=== PATIENT | male | born 1950 | race African-American/Black ===

== ENCOUNTER 2025-06-23 16:55 | Emergency (ER) | payer MEDICARE, SELFPAY ==
--- OUTSIDE RECORDS SUMMARY | 2024-01-28 07:15 | XMS_ITS ---
Author Organization [facility] Address [address] [address] Care Team Providers Care Hat Liner Name Role Phone Drew Owensbbir Primary Care Provider [phone] Allergies No Known Allergies REASON FOR VISIT F/U DM Medications Medication SIG (Take, Route, Frequency, Duration) Notes Start Date End Date Status rOPINIRole HCl 0.25 MG 1 tablet Orally O nce a day at bed time; Duration: 90 days 09/23/2023 Active Losartan Potassium 100 MG TAKE 1 TABLET ONCE DAILY; Duration: 90 Active Ezetimibe-Simvastatin 10-20 MG TAKE 1 TABLET ONCE DAILY; Duration: 90 Active metFORMIN HCl 1000 MG TAKE 1 TABLET TWIC E DAILY WITH MEALS; Duration: 90 Active glipiZIDE 5 MG TAKE 2 TABLETS EVERY MORNING AND 1 TABLET EVERY EVENING DIRECTED; Duration: 90 Active Aspir-81 81 MG 1 tablet Orally Once a day Active Vitamin D3 3000 UNIT 1 capsule Orally On ce a day Active amLODIPine Besylate 5 MG TAKE 1 TABLET O NCE DAILY; Duration: 90 days Active traMADol HCl 50 MG 1 tablet as needed Orally Q 6 hours; Duration: 30 days 05/23/2020 Not-Taking Social History Tobacco Use: Social History Observation Description Date Details (start date - stop date) Never Smoker NA - NA Tobacco Use/Smoking Question Answer Notes Are you a nonsmoker Additional Findings: Tobacco Non-User Current no n-smoker Alcohol Screen (Audit-C) Question Answer Notes Did you have a drink contain ing alcohol in the past year? Yes How often did you have a dri nk containing alcohol in the past year? 4 or more times a week (4 points) How many drinks did you have on a typical day when you were drinking in the past year? 7 to 9 drinks (3 points) How often did you have 6 or more drinks on one occasion in the past year? Monthly (2 points) Points 9 Interpretation Positive Tobacco use other than smoking: Question Answer Notes Are you an other tobacco user? No Vital Signs Temperature 98.6 degrees Fahrenheit 01/28/20 24 Blood pressure systolic 136 mm Hg 01/28/20 24 Blood pressure diastolic 70 mm Hg 024 Heart Rate 97 /min 01/28/2024 Respiratory Rate 16 /min 01/28/2024 Height 70 in 01/28/2024 Weight 212 lbs 01/28/2024 BMI 30.42 kg/m2 01/28/2024 Oximetry 96 % 01/28/2024 ple Encounters Encounter Location Date Provider Diagnosis [place] [id number] [address] [address] 01/28/2024 Manohar Owens Right hip pain M25.5 51 ; Type 2 diabetes mellitus with hyperglycemia, without long-term current use of insulin E11.65 ; Type 2 diabetes mellitus with other specified complication E11.69 ; Mixed hyperlipidemia E78.2 ; Essential hypertension I10 ; Colon polyp K63.5 ; Primary osteoarthritis of right knee M17.11 and Peripheral vascular disease, unspecified I73.9 Assessments Encounter Date Diagnosis (ICD Code) Assessment Notes Treatment Notes Treatment Clinical Notes Section Notes 01/28/2024 Right hip pain (ICD-10 - M25.551) Hip Pain: Care Instructions material was printed 01/28/2024 Type 2 diabetes mellitus with hyperglycemia, without long-term current use of insulin (ICD-10 - E11.65) 01/28/2024 Type 2 diabetes mellitus with other specified complication (ICD-10 - E11.69) 01/28/2024 Mixed hyperlipidemia (ICD-10 - E78.2) 01/28/2024 Essential hypertension (ICD-10 - I10) 01/28/2024 Colon polyp (ICD-10 - K63.5) 01/28/2024 Primary osteoarthritis of right knee (ICD-10 - M17.11) 01/28/2024 Peripheral vascular disease, unspecified (ICD-10 - I73.9) Plan Of Treatment Treatment Notes Assessment Notes Right hip pain Hip Pain: Care Instr uctions material was printed Next Appt Details Provider Name:Manohar Greene georgiana, 09/06/2025 01:00:00 PM, [address] [facility] [address], [place], [address], Progress Notes * Hu CAT CDOB: 3 (74 yo M)Acc No.[id number]:01/28/2024 Progress Notes Patient: Hu VALENCIA Provider: Margret Owens M.D. :1950 A ge:73 Y S ex:Male Date:01/28/2024 Address: [address], [facility] Subjective: * Chief Complaints: * 1 . F/U DM. * ROS: C onstitutional: No C onstit. Complaints . D enies A ppetites change . D enies E xcessive sweating . D enies F atigue . D enies F ever. D enies N ight sweats . D enies W eight gain. D enies W eight loss. E yes: No E ye complaints . D enies B lurred vision. D enies C orrective lenses. D enies D iplopia. D enies E ye irritation . D enies E ye pain . D enies S pots in vision . D enies V ision loss. ? E ars, nose, mouth, throat: No E NT complaints . D enies E ar pain . D enies H earing loss . D enies T innitus. D enies V ertigo. D enies F acial pain . D enies N rickey discharge. D enies N rickey obstruction . D enies N osebleeds. D enies P ostnasal drainage . D enies B leeding gums. D enies D ental pain . D enies M outh Lesions . D enies H oarseness. D enies S ore throat .? C ardiovascular: No C ardiovas. Complaints. D enies C hest pain .?Denies D ecr. exercise tolerance . D enies E xertional dyspnea . D enies O rthropnea. D enies P alpitations. D enies S yncope. D enies C laudication . Denies L eg ulcers . D enies P eripheral edema. R espiratory: No R espiratory Complaints . D enies C ough . D enies S putum production . D enies H emoptysis . D enies S hortness of Breath .?Denies P leuritic pain . D enies W heezing . D enies S noring . D enies A pneas. G astrointestinal: No G I Complaints . D enies A bdominal pain . D enies B loating . D enies F ood intolerance . D enies N ausea. D enies V omiting . D enies D ysphagia . D enies R eflux/heartburn . D enies C hange in bowel habits . D enies C onstipation . D enies D iarrhea . D enies B lack stools . D enies B loody stools. G enitourinary: No G U Complaints . D enies C hange in urinary stream . D enies D ysuria . D enies H ematuria . D enies I ncontinence . D enies N octuria . D enies U rinary frequency . D enies U rinary urgency . D enies D ysmenorrhea. D enies D yspareunia. D enies S exual dysfunction . D enies V aginal discharge . M usculoskeletal: Denies M usculo. Complaints . D enies B ack pain .?Admits J oint pain , N geneva pain, Rt Shoulder pain.. A dmits J oint swelling ,?Scrotum Swelling . D enies L imited range of motion . D enies M uscle aches. D enies M uscle weakness . D enies S tiffness . N eurologic: No N eurologic Complaints . D enies A bnormal gait . D enies F ocal weakness . D enies H eadache . D enies I ncoordination .?Denies M qasim problems . D enies N umbness . D enies S eizures . D enies?Slurred Speech. P sychiatric: No P sychiatric Complaints . D enies A nxiety .?Denies D ecreased concentration . D enies I rritability . D enies P anic attacks . D enies S leep disturbance . D enies S adness/tearfulness. H ematologic/lymphatic: No H em/Lymph Complaints . D enies B ruising . D enies B leeding tendencies . D enies L ymphadenopathy . D enies R ecurrent infections . A llergic/immunologic: No A ll/Imm Complaints . D enies E czema. D enies S easonal allergies . D enies U rticaria . E ndocrine: No E ndocrine Complaints . D enies P olydipsia .?Denies P olyphagia . D enies P olyuria . * Medical History: H ypertension(benign), Diabetes mellitus, GERD(Gastroesophageal reflux disease), Hyperlipidemia, Osteoarthritis. * Surgical History: C olon Resection ; , Foot Surgery ; . * Family History: M igFamilyHx: Mother-Hypertensive disorder, systemic arterial. 8 brother(s) , 4 sister(s) . 2 daughter(s) . . * Social History: T obacco Use: T obacco Use/Smoking A re you a n peace, Arabella dditional Findings: Tobacco Non-User C urrent non-smoker. T obacco use other than smoking A re you an other tobacco user? N o. M igSocialHx: M igSocialHx: Alcohol Use (ANS-No) ;Drug Use (ANS-No) ;Lives In (ANS-Home) ;Smoking status (ANS-Never smoker) ;. D rugs/Alcohol: D rugs H ave you used drugs other than those for medical reasons in the past 12 months??No. A lcohol Screen (Audit-C) D id you have a drink containing alcohol in the past year? Y es, H ow often did you have a drink containing alcohol in the past year? 4 or more times a week (4 points), H ow many drinks did you have on a typical day when you were drinking in the past year? 7 to 9 drinks (3 points), H ow often did you have 6 or more drinks on one occasion in the past year? M onthly (2 points), P oints 9 , I nterpretation P ositive. C affeine I ntake: 1 -2 cups per day. D o you smoke marijuana?: Denies. Do you drink alcohol?: Yes, , Daily. * Medications: T aking Vitamin D3 3000 UNIT Tablet 1 capsule Orally Once a day , Taking Aspir-81 81 MG Tablet Delayed Release 1 tablet Orally Once a day , Taking amLODIPine Besylate 5 MG Tablet TAKE 1 TABLET ONCE DAILY , Taking rOPINIRole HCl 0.25 MG Tablet 1 tablet Orally Once a day at bed time , Taking Ezetimibe-Simvastatin 10-20 MG Tablet TAKE 1 TABLET ONCE DAILY , Taking Losartan Potassium 100 MG Tablet TAKE 1 TABLET ONCE DAILY , Taking glipiZIDE 5 MG Tablet TAKE 2 TABLETS EVERY MORNING AND 1 TABLET EVERY EVENING DIRECTED , Taking metFORMIN HCl 1000 MG Tablet TAKE 1 TABLET TWICE DAILY WITH MEALS , Not-Taking/PRN traMADol HCl 50 MG Tablet 1 tablet as needed Orally Q 6 hours , Medication List reviewed and reconciled with the patient * Allergies: N .K.D.A. Objective: * Vitals: T emp:98.6F, HR:97/min, BP:136/70mm Hg, Wt:212lbs, BMI:30.42Index, Ht: 70 in, RR:16/min, Oxygen sat %:96%, Peak Flow:RA, Ht-cm: 177.8 cm, Wt-k.16kg. ple. * Examination: G eneral Examination: FUNCTIONAL STATUS A mbulatory . COGNITIVE STATUS A lert and oriented. GENERAL APPEARANCE: i n no acute distress, well developed, well nourished. NUTRITIONAL STATUS N ormal . ASSISTED DEVICES N one. HEAD: n ormocephalic, atraumatic. EYES: p upils equal, reactive to light and accommodation.? EARS: n ormal. ORAL CAVITY: m ucosa moist. THROAT: c lear. NECK/THYROID: n geneva supple, full range of motion, no cervical lymphadenopathy. SKIN: w arm and dry. HEART: r egular rate and rhythm, S1, S2 normal. LUNGS: c lear to auscultation bilaterally. ABDOMEN: n ormal, bowel sounds present, soft, nontender, nondistended. EXTREMITIES: n o clubbing, cyanosis, or edema. NEUROLOGIC: n onfocal, cranial nerves 2-12 grossly intact, motor strength normal upper and lower extremities, sensory exam intact. PSYCH: a lert, oriented x 3. Assessment: * Assessment: 1. R ight hip pain - M25.551 (Primary) 2 . T ype 2 diabetes mellitus with hyperglycemia, without long-term current use of insulin - E11.65 3 . T ype 2 diabetes mellitus with other specified complication - E11.69 4 . M ixed hyperlipidemia - E78.2 5 . E ssential hypertension - I10 6 . C olon polyp - K63.5 7 . P rimary osteoarthritis of right knee - M17.11 8 .?Peripheral vascular disease, unspecified - I73.9 Plan: * Treatment: * Preventive Medicine: Counseling: Ezra Boyle Management: Margoth TAPIA RECOMMENDATION: H ypertension education. C are goal follow-up plan: B [place] management provided Y es, Arabella talley Normal BMI Follow-up G iving encouragement to exercise, Lifestyle education regarding diet. * * Electronic signature of Katya Owens MD on 06/23/2025 at 06:40 PM EST Sign off status: Pending * Provider: Margret Owens M.D. Date: 0 01/28/2024 Generated for Printi ng/Faxing/eTransmitting on: 08/23/2024 06:40 PM EST History and Physical Notes * Examination Category Sub-Category Detail Notes Category Not es General Examination GENERAL APPEARANCE: in no ac nigel distress, well developed, well nourished HEAD: normocephalic, atrau matic EYES: pupils equal, reacti ve to light and accommodation EARS: normal THROAT: clear NECK/THYROID: neck supple, full ra nge of motion, no cervical lymphadenopathy HEART: regular rate and rhy thm, S1, S2 normal LUNGS: clear to auscultatio n bilaterally ABDOMEN: normal, bowel sounds present, soft, nontender, nondistended NEUROLOGIC: nonfocal, cranial ne rves 2-12 grossly intact, motor strength normal upper and lower extremities, sensory exam intact SKIN: warm and dry EXTREMITIES: no clubbing, cyanosi s, or edema PSYCH: alert, oriented x 3 ORAL CAVITY: mucosa moist FUNCTIONAL STATUS Ambulatory COGNITIVE STATUS Alert and oriented NUTRITIONAL STATUS Normal ASSISTED DEVICES None
--- OUTSIDE RECORDS SUMMARY | 2024-05-04 07:30 | XMS_ITS ---
Author Organization [facility] Address [address] [facility] [address] [place] [address] Care Team Providers Care Licensed Insurance Sales Agent Name Role Phone Manohar Owens Primary Care Provider Encounters Encounter Location Date Provider Diagnosis [facility] [address] [facility] [address] [place] [address] 05/04/2024 Manohar Owens Plan Of Treatment Next Appt Details Provider Name:Manohar stoner, 09/06/2025 01:00:00 PM, [address] [facility], [place], [address], Progress Notes * EMORYHu CDOB: 3 (74 yo M)Acc No.[id number]:05/04/2024 Progress Notes Patient: Hu VALENCIA Nuno Provider: Margret Owens M.D. :1950 A ge:73 Y S ex:Male Date:05/04/2024 Address:[address] [id number] Subjective: * Chief Complaints: * * Medical History: Objective: * Vitals: Assessment: Plan: * Treatment: * Preventive Medicine: Your Preventative Wellness Plan: C olorectal Cancer Screening C olonoscopy is recommended once every 10 years for patients at low risk or 2 years if at high risk. STATUS: U p to date, L ast Colonoscopy Screening Date Repeat in 1 Year. * * Electronic signature of Katya Owens MD on 06/23/2025 at 06:40 PM EST Sign off status: Pending * Provider: Margret Owens M.D. Date: Generated for Jared agauyo/Earl/Radu on: 08/23/2024 06:40 PM EST
--- OUTSIDE RECORDS SUMMARY | 2024-05-10 07:30 | XMS_ITS ---
Author Organization [facility] Address [address] [address] Care Team Providers Care Setup Technician Name Role Phone Manohar Owens Primary Care Provider Allergies No Known Allergies REASON FOR VISIT F/U DM Medications Medication SIG (Take, Route, Frequency, Duration) Notes Start Date End Date Status traMADol HCl 50 MG 1 tablet as needed Orally Q 6 hours; Duration: 30 days 05/23/2020 Not-Taking metFORMIN HCl 1000 MG TAKE 1 TABLET TWIC E DAILY WITH MEALS; Duration: 90 Active amLODIPine Besylate 5 MG TAKE 1 TABLET O NCE DAILY; Duration: 90 days Active Ezetimibe-Simvastatin 10-20 MG TAKE 1 TABLET ONCE DAILY; Duration: 90 Active Losartan Potassium 100 MG TAKE 1 TABLET ONCE DAILY; Duration: 90 Active glipiZIDE 5 MG 2 tablets AM; 1 tabl et PM Orally; Duration: 90 days Active Aspir-81 81 MG 1 tablet Orally Once a day Active rOPINIRole HCl 0.25 MG 1 tablet Orally O nce a day at bed time; Duration: 90 days 09/23/2023 Active Vitamin D3 3000 UNIT 1 capsule Orally On ce a day Active Social History Tobacco Use: Social History Observation [...] other tobacco user? No Vital Signs Temperature 98.2 degrees Fahrenheit 05/10/20 24 Blood pressure systolic 126 mm Hg 05/10/20 24 Blood pressure diastolic 84 mm Hg 024 Heart Rate 96 /min 05/10/2024 Respiratory Rate 16 /min 05/10/2024 Height 70 in 05/10/2024 Weight 210 lbs 05/10/2024 BMI 30.13 kg/m2 05/10/2024 Oximetry 96 % 05/10/2024 ple Encounters Encounter Location Date Provider Diagnosis [facility] [address] [facility] [address] [place] [address] 05/10/2024 Manohar Owens Type 2 diabetes mellitus with hyperglycemia, without long-term current use of insulin E11.65 ; Mixed hyperlipidemia E78.2 ; Essential hypertension I10 ; Esophageal reflux K21.9 ; Colon polyp K63.5 ; Obesity E66.9 and Peripheral vascular disease, unspecified I73.9 Assessments Encounter Date Diagnosis (ICD Code) Assessment Notes Treatment Notes Treatment Clinical Notes Section Notes 05/10/2024 Type 2 diabetes mellitus with hyperglycemia, without long-term current use of insulin (ICD-10 - E11.65) 05/10/2024 Mixed hyperlipidemia (ICD-10 - E78.2) High Cholesterol: Care Instructions material was printed 05/10/2024 Essential hypertension (ICD-10 - I10) 05/10/2024 Esophageal reflux (ICD-10 - K21.9) 05/10/2024 Colon polyp (ICD-10 - K63.5) 05/10/2024 Obesity (ICD-10 - E66.9) 05/10/2024 Peripheral vascular disease, unspecified (ICD-10 - I73.9) Plan Of Treatment Treatment Notes Assessment Notes Mixed hyperlipidemia High Cholesterol: C are Instructions material was printed Next Appt Details Provider Name:Manohar stoner, 09/06/2025 01:00:00 PM, [address] [facility] [address], [place], [address], Progress Notes * Hu CAT CDOB: 3 (74 yo M)Acc No.[id number]:05/10/2024 Progress Notes Patient: Hu VALENCIA Provider: Margret Owens M.D. :1950 A ge:73 Y S ex:Male Date:05/10/2024 Address: [address], [facility] Subjective: * Chief Complaints: * 1 . [...] omiting . D enies D ysphagia . A dmits R eflux/heartburn . D enies C hange [...] pain , N geneva pain, Rt Shoulder pain. . D enies J oint swelling . D enies L imited range of [...] obacco Use/Smoking A re you a n onsmoker, A dditional Findings: Tobacco Non-User C urrent non-smoker. [...] alcohol?: Yes, , Daily. * Medications: T tawnyag Vitamin D3 3000 UNIT Tablet 1 capsule Orally Once a day , Taking Aspir-81 81 MG Tablet Delayed Release 1 tablet Orally Once a day , Taking rOPINIRole HCl 0.25 MG Tablet 1 tablet Orally Once a day at bed time , Taking glipiZIDE 5 MG Tablet 2 tablets AM; 1 tablet PM Orally , Taking metFORMIN HCl 1000 MG Tablet TAKE 1 TABLET TWICE DAILY WITH MEALS , Taking amLODIPine Besylate 5 MG Tablet TAKE 1 TABLET ONCE DAILY , Taking Ezetimibe-Simvastatin 10-20 MG Tablet TAKE 1 TABLET ONCE DAILY , Taking Losartan Potassium 100 MG Tablet TAKE 1 TABLET ONCE DAILY , Not- Taking/PRN traMADol HCl 50 MG Tablet 1 tablet as needed Orally Q 6 hours , Medication List reviewed and reconciled with the patient * Allergies: N .K.D.A. Objective: * Vitals: T emp:98.2F, HR:96/min, BP:126/84mm Hg, Wt:210lbs, BMI:30.13Index, Ht: 70 in, RR:16/min, Oxygen sat %:96%, Peak Flow: RA, Ht-cm: 177.8 cm, Wt-k.25 kg. ple. * Examination: G eneral Examination: FUNCTIONAL [...] oriented x 3. Assessment: * Assessment: 1. T ype 2 diabetes mellitus with hyperglycemia, without long-term current use of insulin - E11.65 (Primary) 2 . M ixed hyperlipidemia - E78.2 3 . E ssential hypertension - I10 4 . E sophageal reflux - K21.9 5 . C olon polyp - K63.5 6 . O besity - E66.9 7 . P eripheral vascular disease, unspecified - I73.9 Plan: * Treatment: * Preventive Medicine: Your Preventative Wellness Plan: C olorectal Cancer Screening C olonoscopy is recommended once every 10 years for patients at low risk or 2 years if at high risk. STATUS: U p to date, L ast Colonoscopy Screening Date 0 -2023 Repeat in 1 Year. D iabetic Eye Exam P atients 18-75 years with diabetes should have retinal or dilated eye exam performed by an salon professional. STATUS: U p to date, L ast Diabetic Eye Exam: 0 04/22/2024. * * Electronic signature of Katya Owens MD on 06/23/2025 at 06:40 PM EST Sign off status: Pending * Provider: Margret Owens M.D. Date: 1 Generated for Jared aguayo/Fasandeepg/eTransmitting on: 08/23/2024 06:40 PM EST History and [...]
--- OUTSIDE RECORDS SUMMARY | 2024-08-17 07:00 | XMS_ITS ---
Author Organization [facility] Address [address] [address] Care Team Providers Care Manufacturing Shift Supervisor Name Role Phone Manohar Owens Primary Care Provider Allergies No Known Allergies REASON FOR VISIT F/U DM, c/o Rt ear pain off and on x 3 weeks Medications Medication SIG (Take, Route, Frequency, Duration) Notes Start Date End Date Status metFORMIN HCl 1000 MG TAKE 1 TABLET TWIC E DAILY WITH MEALS; Duration: 90 Active Ezetimibe-Simvastatin 10-20 MG TAKE 1 TABLET ONCE DAILY; Duration: 90 Active Losartan Potassium 100 MG TAKE 1 TABLET ONCE DAILY; Duration: 90 Active traMADol HCl 50 MG 1 tablet as needed Orally Q 6 hours; Duration: 30 days 05/23/2020 Not-Taking Amoxicillin 500 MG 1 capsule Orally louisa ry 8 hrs; Duration: 7 days 08/17/2024 Active glipiZIDE 5 MG 2 tablets AM; 1 tabl et PM Orally; Duration: 90 days Active Vitamin D3 3000 UNIT 1 capsule Orally On ce a day Active Aspir-81 81 MG 1 tablet Orally Once a day Active rOPINIRole HCl 0.25 MG 1 tablet Orally O nce a day at bed time; Duration: 90 days 09/23/2023 Active amLODIPine Besylate 5 MG TAKE 1 TABLET O NCE DAILY; Duration: 90 days Active Social History Tobacco Use: Social History [...] No Vital Signs Temperature 98.2 degrees Fahrenheit 08/17/19 25 Blood pressure systolic 122 mm Hg 08/17/19 25 Blood pressure diastolic 84 mm Hg 025 Heart Rate 97 /min 08/17/2024 Respiratory Rate 16 /min 08/17/2024 Height 70 in 08/17/2024 Weight 212 lbs 08/17/2024 BMI 30.42 kg/m2 08/17/2024 Oximetry 97 % 08/17/2024 ple Encounters Encounter Location Date Provider Diagnosis [place] [id number] [address] 08/17/2024 Manohar Earache on right H92.01 ; Otitis media in diseases classified elsewhere, right ear H67.1 ; Type 2 diabetes mellitus with hyperglycemia, without long-term current use of insulin E11.65 ; Mixed hyperlipidemia E78.2 ; Essential hypertension I10 ; RLS (restless legs syndrome) G25.81 ; Peripheral vascular disease, unspecified I73.9 ; Type 2 diabetes mellitus with other specified complication E11.69 and Morbid obesity E66.01 Assessments Encounter Date Diagnosis (ICD Code) Assessment Notes Treatment Notes Treatment Clinical Notes Section Notes 08/17/2024 Earache on right (ICD-10 - H92.01) Earache: Care Instructions material was printed 08/17/2024 Otitis media in diseases classified elsewhere, right ear (ICD-10 - H67.1) 08/17/2024 Type 2 diabetes mellitus with hyperglycemia, without long-term current use of insulin (ICD-10 - E11.65) 08/17/2024 Mixed hyperlipidemia (ICD-10 - E78.2) 08/17/2024 Essential hypertension (ICD-10 - I10) 08/17/2024 RLS (restless legs syndrome) (ICD-10 - G25.81) 08/17/2024 Peripheral vascular disease, unspecified (ICD-10 - I73.9) 08/17/2024 Type 2 diabetes mellitus with other specified complication (ICD-10 - E11.69) 08/17/2024 Morbid obesity (ICD-10 - E66.01) Plan Of Treatment Medication Medication Name Sig Start Date Stop Date Notes Amoxicillin 500 MG 1 capsule Orally louisa ry 8 hrs; Duration: 7 days 08/17/2024 glipiZIDE 5 MG 2 tablets AM; 1 tabl et PM Orally; Duration: 90 days Treatment Notes Assessment Notes Earache on right Earache: Care Instru ctions material was printed Next Appt Details Provider Name:Manohar stoner, 09/06/2025 01:00:00 PM, [address] [facility], [facility], [place], [address], Progress Notes * EMORY Hu CDOB: 3 (74 yo M)Acc No.[id number]:08/17/2024 Progress Notes Patient: Hu VALENCIA C Provider: Margret Owens M.D. :1950 A ge:73 Y S ex:Male Date:08/17/2024 Address: [address], [facility] Subjective: * Chief Complaints: * 1 . F/U DM. 2. c/o Rt ear pain off and on x 3 weeks. * ROS: C onstitutional: No C onstit. [...] enies V aginal discharge . M usculoskeletal: Musculo. Complaints A dmits neck pain. A dmits J oint pain . D enies J oint swelling . D enies L imited range of motion . D enies?Muscle aches. D enies M uscle weakness . [...] a day at bed time , Taking amLODIPine Besylate 5 MG Tablet TAKE 1 TABLET ONCE DAILY , Taking glipiZIDE 5 MG Tablet 2 tablets AM; 1 tablet PM Orally , Taking metFORMIN HCl 1000 MG Tablet TAKE 1 TABLET TWICE DAILY WITH MEALS , Taking Ezetimibe-Simvastatin 10-20 MG Tablet TAKE 1 TABLET ONCE DAILY , Taking Losartan Potassium 100 MG Tablet TAKE 1 TABLET ONCE DAILY , Not-Taking/PRN traMADol HCl 50 MG Tablet 1 tablet as needed Orally Q 6 hours , Medication List reviewed and reconciled with the patient * Allergies: N .K.D.A. Objective: * Vitals: T emp:98.2F, HR:97/min, BP:122/84mm Hg, Wt:212lbs, BMI:30.42Index, Ht: 70 in, RR:16/min, Oxygen sat %:97%, Peak Flow: RA, Ht-cm: 177.8 cm, Wt-k.16 kg. ple. * Examination: G eneral Examination: [...] oriented x 3. Assessment: * Assessment: 1. O titis media in diseases classified elsewhere, right ear - H67.1 2 . E arache on right - H92.01 (Primary) 3 . T ype 2 diabetes mellitus with hyperglycemia, without long-term current use of insulin - E11.65 4 . M ixed hyperlipidemia - E78.2 5 . E ssential hypertension - I10 6 . R LS (restless legs syndrome) - G25.81 7 . P eripheral vascular disease, unspecified - I73.9? 8. T ype 2 diabetes mellitus with other specified complication - E11.69 & #160; 9 . M orbid obesity - E66.01 Plan: * Treatment: 2. T ype 2 diabetes mellitus with hyperglycemia, without long-term current use of insulin Refill glipiZIDE Tablet, 5 MG, 2 tablets AM; 1 tablet PM, Orally, 90 days, 270 Each, Refills 1.? * Preventive Medicine: Your Preventative Wellness Plan: [...] or dilated eye exam performed by an blind eyeletter. STATUS: U p to date, L ast Diabetic Eye Exam: 0 04/22/2024. * * Electronic signature of Katya Owens MD on 06/23/2025 at 06:40 PM EST Sign off status: Pending * Provider: Margret Owens M.D. Date: 0 08/17/2024 Generated for Jdi ng/Faxing/eTransmitting on: 08/23/2024 06:40 PM EST History [...]
--- OUTSIDE RECORDS SUMMARY | 2024-08-29 08:30 | XMS_ITS ---
Author Organization [facility] Address [address] [address] Care Team Providers Care Customer Energy Specialist Name Role Phone Drew Owensbbir Primary Care Provider [phone] Allergies No Known Allergies REASON FOR VISIT F/U DM Medications Medication SIG (Take, Route, Frequency, Duration) Notes Start Date End Date Status glipiZIDE 5 MG 2 tablets AM; 1 tabl et PM Orally; Duration: 90 days Active traMADol HCl 50 MG 1 tablet as needed Orally Q 6 hours; Duration: 30 days 05/23/2020 Not-Taking Losartan Potassium 100 MG TAKE 1 TABLET ONCE DAILY; Duration: 90 Active Ezetimibe-Simvastatin 10-20 MG TAKE 1 TABLET ONCE DAILY; Duration: 90 Active Vitamin D3 3000 UNIT 1 capsule Orally On ce a day Active Aspir-81 81 MG 1 tablet Orally Once a day Active rOPINIRole HCl 0.25 MG 1 tablet Orally O nce a day at bed time; Duration: 90 days 09/23/2023 Active amLODIPine Besylate 5 MG TAKE 1 TABLET O NCE DAILY; Duration: 90 days Active metFORMIN HCl 1000 MG TAKE 1 TABLET TWIC E DAILY WITH MEALS; Duration: 90 Active Social History Tobacco Use: Social History [...] No Vital Signs Temperature 98.6 degrees Fahrenheit 08/29/19 25 Blood pressure systolic 124 mm Hg 08/29/19 25 Blood pressure diastolic 72 mm Hg 025 Heart Rate 96 /min 08/29/2024 Respiratory Rate 16 /min 08/29/2024 Height 70 in 08/29/2024 Weight 211 lbs 08/29/2024 BMI 30.27 kg/m2 08/29/2024 Oximetry 95 % 08/29/2024 ple Encounters Encounter Location Date Provider Diagnosis [facility] [address] [facility] [address] [place] [address] 08/29/2024 Manohar Owens Otitis media in diseases classified elsewhere, right ear H67.1 ; Impacted cerumen of right ear H61.21 ; Essential hypertension I10 ; Mixed hyperlipidemia E78.2 and RLS (restless legs syndrome) G25.81 Assessments Encounter Date Diagnosis (ICD Code) Assessment Notes Treatment Notes Treatment Clinical Notes Section Notes 08/29/2024 Otitis media in diseases classified elsewhere, right ear (ICD-10 - H67.1) Ear Infection (Otitis Media): Care Instructions material was printed 08/29/2024 Impacted cerumen of right ear (ICD-10 - H61.21) 08/29/2024 Essential hypertension (ICD-10 - I10) 08/29/2024 Mixed hyperlipidemia (ICD-10 - E78.2) 08/29/2024 RLS (restless legs syndrome) (ICD-10 - G25.81) Plan Of Treatment Treatment Notes Assessment Notes Otitis media in diseases cla ssified elsewhere, right ear Ear Infection (Otitis Media): Care Instructions material was printed Next Appt Details Provider Name:Manohar stoner, 09/06/2025 01:00:00 PM, [address] [facility], [address], [place], [address], Progress Notes * Hu CAT CDOB: 3 (74 yo M)Acc No.[id number]:08/29/2024 Progress Notes Patient: Hu VALENCIA Provider: Margret Owens M.D. :1950 A ge:73 Y S ex:Male Date:08/29/2024 Address:[address] [place], [place] [address] , [facility] Subjective: * Chief Complaints: * 1 . [...] usculoskeletal: Musculo. Complaints A dmits neck pain. D enies B ack pain . A dmits J oint pain . D [...] TAKE 1 TABLET ONCE DAILY , Taking metFORMIN HCl 1000 MG Tablet TAKE 1 TABLET TWICE DAILY WITH MEALS , Taking Ezetimibe-Simvastatin 10-20 MG Tablet TAKE 1 TABLET ONCE DAILY , Taking Losartan Potassium 100 MG Tablet TAKE 1 TABLET ONCE DAILY , Taking glipiZIDE 5 MG Tablet 2 tablets AM; 1 tablet PM Orally , Not-Taking/PRN traMADol HCl 50 MG Tablet 1 tablet as needed Orally Q 6 hours , Discontinued Amoxicillin 500 MG Capsule 1 capsule Orally every 8 hrs , Medication List reviewed and reconciled with the patient * Allergies: N .K.D.A. Objective: * Vitals: T emp:98.6F, HR:96/min, BP:124/72mm Hg, Wt:211lbs, BMI:30.27Index, Ht: 70 in, RR:16/min, Oxygen sat %:95%, Peak Flow: RA, Ht-cm: 177.8 cm, Wt-k.71 kg. ple. * Examination: G eneral Examination: [...] diseases classified elsewhere, right ear - H67.1 (Primary) 2 . I mpacted cerumen of right ear - H61.21 3 . E ssential hypertension - I10 4 . M ixed hyperlipidemia - E78.2 5 . R LS (restless legs syndrome) - G25.81 Plan: * Treatment: * Preventive Medicine: Your [...] or dilated eye exam performed by an accounts payable professional. STATUS: U p to date, L ast Diabetic Eye Exam: 0 04/22/2024. * * Electronic signature of Katya Owens MD on 06/23/2025 at 06:40 PM EST Sign off status: Pending * Provider: Margret Owens M.D. Date: 0 08/29/2024 Generated for Printi ng/Faxing/eTransmitting on: 1 08/23/2024 06:40 PM EST History and Physical [...]
--- OUTSIDE RECORDS SUMMARY | 2025-02-22 07:00 | XMS_ITS ---
Author Organization [facility] Address [address] [address] Care Team Providers Care Public Relations Supervisor Name Role Phone Manohar Owens Primary Care Provider [phone] Allergies No Known Allergies REASON FOR VISIT F/U DM Medications Medication SIG (Take, Route, Frequency, Duration) Notes Start Date End Date Status glipiZIDE 5 MG TAKE 2 TABLETS EVERY MORNING AND 1 TABLET EVERY EVENING; Duration: 90 Active metFORMIN HCl 1000 MG TAKE 1 TABLET TWIC E DAILY WITH MEALS; Duration: 90 Active Losartan Potassium 100 MG TAKE 1 TABLET ONCE DAILY; Duration: 90 Active Ezetimibe-Simvastatin 10-20 MG TAKE 1 TABLET ONCE DAILY; Duration: 90 Active amLODIPine Besylate 5 MG TAKE 1 TABLET D AILY; Duration: 90 days Active traMADol HCl 50 MG 1 tablet as needed Orally Q 6 hours; Duration: 30 days 05/23/2020 Not-Taking Aspir-81 81 MG 1 tablet Orally Once a day Active Vitamin D3 3000 UNIT 1 capsule Orally On a day Active Social History Tobacco Use: [...] other tobacco user? No Vital Signs Temperature 98.1 degrees Fahrenheit 02/23/20 25 Blood pressure systolic 138 mm Hg 02/23/20 25 Blood pressure diastolic 74 mm Hg 025 Heart Rate 95 /min 02/22/2025 Respiratory Rate 16 /min 02/22/2025 Height 70 in 02/22/2025 Weight 209 lbs 02/22/2025 BMI 29.99 kg/m2 02/22/2025 Oximetry 96 % 02/22/2025 ple Encounters Encounter Location Date Provider Diagnosis [facility] [address] [facility] [address] [place] [address] 02/22/2025 Manohar Owens Type 2 diabetes mellitus with hyperglycemia, without long-term current use of insulin E11.65 ; Type 2 diabetes mellitus with other specified complication E11.69 ; Mixed hyperlipidemia E78.2 ; Essential hypertension I10 ; Obesity E66.9 and Vitamin D deficiency E55.9 Assessments Encounter Date Diagnosis (ICD Code) Assessment Notes Treatment Notes Treatment Clinical Notes Section Notes 02/22/2025 Type 2 diabetes mellitus with hyperglycemia, without long-term current use of insulin (ICD-10 - E11.65) Type 2 Diabetes: Care Instructions material was printed 02/22/2025 Type 2 diabetes mellitus with other specified complication (ICD-10 - E11.69) 02/22/2025 Mixed hyperlipidemia (ICD-10 - E78.2) 02/22/2025 Essential hypertension (ICD-10 - I10) 02/22/2025 Obesity (ICD-10 - E66.9) 02/22/2025 Vitamin D deficiency (ICD-10 - E55.9) Plan Of Treatment Treatment Notes Assessment Notes Type 2 diabetes mellitus wit h hyperglycemia, without long-term current use of insulin Type 2 Diabetes: Care Instructions mater ial was printed Next Appt Details Provider Name:Manohar stoner, 09/06/2025 01:00:00 PM, [address] [facility], [address], [place], [address], Progress Notes * Hu CAT CDOB: 3 (74 yo M)Acc No.[id number]:02/22/2025 Progress Notes Patient: Hu VALENCIA Provider: Margret Owens M.D. :1950 A ge:74 Y S ex:Male Date:02/22/2025 Address:[address] [place] [address] , [facility], [id number] Subjective: * Chief Complaints: * 1 . F/U DM. * Medical History: H ypertension(benign), Diabetes mellitus, GERD(Gastroesophageal reflux disease), Hyperlipidemia, Osteoarthritis. * Surgical History: C olon Resection ; , Foot Surgery ; . * Family History: M igFamilyHx: Mother-Hypertensive disorder, systemic arterial. 8 brother(s) , 4 sister(s) . 2 daughter(s) . . * Social History: T obacco Use: T obacco Use/Smoking A re you a n onsmoker, Arabella dditional Findings: Tobacco Non-User C urrent [...] Besylate 5 MG Tablet TAKE 1 TABLET DAILY , Taking Ezetimibe-Simvastatin 10-20 MG Tablet TAKE 1 TABLET ONCE DAILY , Taking Losartan Potassium 100 MG Tablet TAKE 1 TABLET ONCE DAILY , Taking metFORMIN HCl 1000 MG Tablet TAKE 1 TABLET TWICE DAILY WITH MEALS , Taking glipiZIDE 5 MG Tablet TAKE 2 TABLETS EVERY MORNING AND 1 TABLET EVERY EVENING , Not-Taking/PRN traMADol HCl 50 MG Tablet 1 tablet as needed Orally Q 6 hours , Medication List reviewed and reconciled with the patient * Allergies: N .K.D.A. Objective: * Vitals: T emp:98.1F, HR:95/min, BP:138/74mm Hg, Wt:209lbs, BMI:29.99Index, Ht: 70 in, RR:16/min, Oxygen sat %:96%, Peak Flow:RA, Ht-cm: 177.8 cm, Wt-k.8 kg. ple. Assessment: * Assessment: 1. T ype 2 diabetes mellitus with hyperglycemia, without long-term current use of insulin - E11.65 (Primary) 2 . T ype 2 diabetes mellitus with other specified complication - E11.69 3 . M ixed hyperlipidemia - E78.2 4 . E ssential hypertension - I10 5 . O besity - E66.9 6 . V itamin D deficiency - E55.9 Plan: * Treatment: * Preventive Medicine: Your [...] or dilated eye exam performed by an education paraprofessional. STATUS: U p to date, L ast Diabetic Eye Exam: 0 04/22/2024. * * Electronic signature of Katya Owens MD on 06/23/2025 at 06:41 PM EST Sign off status: Pending * Provider: Margret Owens M.D. Date: 0 02/22/2025 Generated for Jared aguayo/Earl/eTransmitting on: 08/23/2024 06:41 PM EST
--- OUTSIDE RECORDS SUMMARY | 2025-05-29 07:00 | XMS_ITS ---
Author Organization [facility] Address [address] [address] Care Team Providers Care Fundraising Manager Name Role Phone Manohar Owens Primary Care Provider [phone] Allergies No Known Allergies REASON FOR VISIT F/U DM Medications Medication SIG (Take, Route, Frequency, Duration) Notes Start Date End Date Status Vitamin D3 3000 UNIT 1 capsule Orally On ce a day Active Aspir-81 81 MG 1 tablet Orally Once a day Active traMADol HCl 50 MG 1 tablet as needed Orally Q 6 hours; Duration: 30 days 05/23/2020 Not-Taking amLODIPine Besylate 5 MG TAKE 1 TABLET D AILY; Duration: 90 days Active metFORMIN HCl 1000 MG TAKE 1 TABLET TWIC E DAILY WITH MEALS; Duration: 90 days Active Ezetimibe-Simvastatin 10-20 MG TAKE 1 TABLET ONCE DAILY; Duration: 90 Active Losartan Potassium 100 MG TAKE 1 TABLET ONCE DAILY; Duration: 90 Active glipiZIDE 5 MG TAKE 2 TABLETS EVERY MORNING AND 1 TABLET EVERY EVENING; Duration: 90 Active Vital Signs Temperature 98.1 degrees Fahrenheit 05/29/20 25 Blood pressure systolic 140 mm Hg 05/29/20 25 Blood pressure diastolic 72 mm Hg 025 Heart Rate 84 /min 05/29/2025 Respiratory Rate 16 /min 05/29/2025 Height 70 in 05/29/2025 Weight 210 lbs 05/29/2025 BMI 30.13 kg/m2 05/29/2025 Oximetry 97 % 05/29/2025 TM Encounters Encounter Location Date Provider Diagnosis [facility] [address] [place], [place] [address] [address] 05/29/2025 Manohar Owens Type 2 diabetes mellitus with hyperglycemia, without long-term current use of insulin E11.65 ; Diabetes mellitus with peripheral vascular disease E11.51 ; Essential hypertension I10 ; Mixed hyperlipidemia E78.2 ; Colon polyp K63.5 ; Esophageal reflux K21.9 ; Obesity E66.9 and Cervical spondylosis M47.812 Assessments Encounter Date Diagnosis (ICD Code) Assessment Notes Treatment Notes Treatment Clinical Notes Section Notes 05/29/2025 Type 2 diabetes mellitus with hyperglycemia, without long-term current use of insulin (ICD-10 - E11.65) Type 2 Diabetes: Care Instructions material was printed 05/29/2025 Diabetes mellitus with peripheral vascular disease (ICD-10 - E11.51) 05/29/2025 Essential hypertension (ICD-10 - I10) 05/29/2025 Mixed hyperlipidemia (ICD-10 - E78.2) 05/29/2025 Colon polyp (ICD-10 - K63.5) 05/29/2025 Esophageal reflux (ICD-10 - K21.9) 05/29/2025 Obesity (ICD-10 - E66.9) 05/29/2025 Cervical spondylosis (ICD-10 - M47.812) Plan Of Treatment Medication Medication Name Sig Start Date Stop Date Notes amLODIPine Besylate 5 MG TAKE 1 TABLET D AILY; Duration: 90 days Treatment Notes Assessment Notes Type 2 diabetes mellitus wit h hyperglycemia, without long-term current use of insulin Type 2 Diabetes: Care Instructions mater ial was printed Next Appt Details Provider Name:Manohar stoner, 09/06/2025 01:00:00 PM, [address] [facility], [address], [place], [address], Progress Notes * Hu CAT CDOB: 3 (74 yo M)Acc No.[id number]:05/29/2025 Progress Notes Patient: Hu VALENCIA Provider: Margret Owens M.D. :1950 A ge:74 Y S ex:Male Date:05/29/2025 Address: [address], [id number] Subjective: * Chief Complaints: * 1 . F/U DM. * Medical History: H ypertension(benign), Diabetes mellitus, GERD(Gastroesophageal reflux disease), Hyperlipidemia, Osteoarthritis. * Surgical History: C olon Resection ; , Foot Surgery ; . * Hospitalization/Major Diagno stic Procedure: D enies Past Hospitalization. * Family History: M igFamilyHx: Mother-Hypertensive disorder, systemic arterial. 8 brother(s) , 4 sister(s) . 2 daughter(s) . . * Social History: M igSocialHx: M igSocialHx: Alcohol Use (ANS-No) ;Drug Use (ANS-No) ;Lives In (ANS-Home) ;Smoking status (ANS-Never smoker) ;. * Medications: T aking Vitamin D3 3000 [...] MORNING AND 1 TABLET EVERY EVENING , Taking metFORMIN HCl 1000 MG Tablet TAKE 1 TABLET TWICE DAILY WITH MEALS , Not-Taking/PRN traMADol HCl 50 MG Tablet 1 tablet as needed Orally Q 6 hours , Medication List reviewed and reconciled with the patient * Allergies: N .K.D.A. Objective: * Vitals: T emp:98.1F, HR:84/min, BP:140/72mm Hg, Wt:210lbs, BMI:30.13Index, Ht: 70 in, RR:16/min, Oxygen sat %:97%, Peak Flow: RA, Ht-cm: 177.8 cm, Wt-k.26 kg. TM. Assessment: * Assessment: 1. T ype 2 diabetes mellitus with hyperglycemia, without long-term current use of insulin - E11.65 (Primary) 2 . D iabetes mellitus with peripheral vascular disease - E11.51? 3. E ssential hypertension - I10 4 . M ixed hyperlipidemia - E78.2 5 . C olon polyp - K63.5 6 . E sophageal reflux - K21.9 7 . O besity - E66.9 8 . C ervical spondylosis - M47.812? Plan: * Treatment: 2. E ssential hypertension Refill amLODIPine Besylate Tablet, 5 MG, TAKE 1 TABLET DAILY, 90 days, 90 Tablet, Refills 1. ? * Preventive Medicine: Your Preventative Wellness Plan: [...] or dilated eye exam performed by an risk professional. STATUS: U p to date, L ast Diabetic Eye Exam: 0 04/22/2024. * * Electronic signature of Katya Owens MD on 06/23/2025 at 06:40 PM EST Sign off status: Pending * Provider: Margret Owens M.D. Date: Generated for Jared aguayo/Earl/Radu on: 08/23/2024 06:40 PM EST
--- NOTE | ~2025-06-23 | CT_ITS ---
EXAMINATION: CT brain wo con DATE: 06/23/2025 18:14 INDICATION: Dizziness. TECHNIQUE: Computed tomography (CT) of the head was performed without intravenous contrast. The mA was adjusted according to patient size. Iterative reconstruction technique was employed. The dose-length product was 605.33 mGy-cm. COMPARISON: None FINDINGS: No acute bleed. No ventriculomegaly or midline shift. Chronic small vessel ischemic change of periventricular white matter. No midline shift. Sinuses and mastoids are free of acute processes. IMPRESSION: 1. No acute findings in the limited noncontrast study. Reviewed, dictated and finalized at location T. NCIAL COMPLIANCE OFFICER
[2025-06-23 16:52] VITALS: BP 161/99; PULSE 106; RESP 19; TEMP 37.1; O2SAT 95
--- OUTSIDE RECORDS SUMMARY | 2025-06-23 17:40 | XMS_ITS | Patient Health Record ---
Author Organization [facility] Address [address] [address] Care Team Providers Care Chain Testing Machine Operator Name Role Phone Drew Owensbbir Primary Care Provider [phone] Allergies No Known Allergies Reason For Referral No Information Medications Medication SIG (Take, Route, Frequency, Duration) Notes Start Date End Date Status Vitamin D3 3000 UNIT 1 capsule Orally On a day Active Aspir-81 81 MG 1 tablet Orally Once a day Active traMADol HCl 50 MG 1 tablet as needed Orally Q 6 hours; Duration: 30 days 05/23/2020 Not-Taking amLODIPine Besylate 5 MG TAKE 1 TABLET D AILY; Duration: 90 days Active Ezetimibe-Simvastatin 10-20 MG TAKE 1 TABLET ONCE DAILY; Duration: 90 Active Losartan Potassium 100 MG TAKE 1 TABLET ONCE DAILY; Duration: 90 Active glipiZIDE 5 MG TAKE 2 TABLETS EVERY MORNING AND 1 TABLET EVERY EVENING; Duration: 90 Active metFORMIN HCl 1000 MG TAKE 1 TABLET TWIC E DAILY WITH MEALS; Duration: 90 days Active Social History Tobacco [...] Are you an other tobacco user? No Problems Problem Type SNOMED Code ICD Code Onset Dates Problem Status W/U Status Risk Notes Problem Type 2 diabetes mellitus with other specified complication (E11.69) Active confirmed Problem Mixed hyperlipidemia (470580267) Mixed hyperlipidemia (E78.2) Active confirmed Problem Peripheral vascular disease (453194317) Peripheral vascular disease, unspecified (I73.9) Active confirmed Problem Restless legs (89162163) RLS (restless legs syndrome) (G25.81) Active confirmed Problem Essential hypertension (49000237) Essential hypertension (I10) Active confirmed Problem Vitamin D deficiency (89168891) Vitamin D deficiency (E55.9) Active confirmed Problem Occlusion and stenosis of multiple and bilateral cerebral arteries (621889939) Bilateral carotid artery stenosis (I65.23) Active confirmed Problem Polyp colon (45112490) Colon polyp (K63.5) Active confirmed Problem Shoulder joint pain (753451056) Acute pain of right shoulder (M25.511) Active confirmed Problem Generalized osteoarthritis (938825600) Generalized osteoarthritis (M15.9) Active confirmed Problem Esophageal reflux (438877059) Esophageal reflux (K21.9) Active confirmed Problem Neck pain (21902440) Neck pain (M54.2) Active confirmed Problem Obesity (525622675) Obesity (E66.9) Active confirmed Problem Osteoarthritis of knee (183684970) Primary osteoarthritis of right knee (M17.11) Active confirmed Problem Cervical spondylosis (075529441) Cervical spondylosis (M47.812) Active confirmed Problem Type 2 diabetes mellitus well controlled (968378566) Diabetes mellitus type II, controlled (E11.9) Active confirmed Problem Localized, primary osteoarthritis of the shoulder region (349752249) Primary osteoarthritis of left shoulder (M19.012) Active confirmed Problem Type 2 diabetes mellitus with peripheral angiopathy (516885238) Diabetes mellitus with peripheral vascular disease (E11.51) Active confirmed Problem Hyperglycemia due to type 2 diabetes mellitus (329033603959001) Type 2 diabetes mellitus with hyperglycemia, without long-term current use of insulin (E11.65) Active confirmed Problem Swelling of scrotum (791389257) Swelling of scrotum (N50.89) Active confirmed Vital Signs Heart Rate 84 /min 05/29/2025 TM Temperature 98.1 degrees Fahrenheit 05/29/2025 TM Respiratory Rate 16 /min 05/29/2025 TM Blood pressure diastolic 72 mm Hg 05/29/2025 TM Oximetry 97 % 05/29/2025 TM Height 70 in 05/29/2025 TM Blood pressure systolic 140 mm Hg 05/29/2025 TM Weight 210 lbs 05/29/2025 TM BMI 30.13 kg/m2 05/29/2025 TM Encounters Encounter Location Date Provider Diagnosis [facility] [address] [address] 08/17/2024 Manohar Owens Earache on right H92 .01 ; Otitis media in diseases classified elsewhere, right ear H67.1 ; Type 2 diabetes mellitus with hyperglycemia, without long-term current use of insulin E11.65 ; Mixed hyperlipidemia E78.2 ; Essential hypertension I10 ; RLS (restless legs syndrome) G25.81 ; Peripheral vascular disease, unspecified I73.9 ; Type 2 diabetes mellitus with other specified complication E11.69 and Morbid obesity E66.01 [facility] [address] [address] 08/29/2024 Manohar Owens Otitis media in diseases classified elsewhere, right ear H67.1 ; Impacted cerumen of right ear H61.21 ; Essential hypertension I10 ; Mixed hyperlipidemia E78.2 and RLS (restless legs syndrome) G25.81 [facility] [address] [address] 11/23/2024 Manohar Owens Type 2 diabetes mellitus with hyperglycemia, without long-term current use of insulin E11.65 ; Diabetes mellitus with peripheral vascular disease E11.51 ; Generalized osteoarthritis M15.9 ; Bilateral carotid artery stenosis I65.23 ; Essential hypertension I10 and Mixed hyperlipidemia E78.2 [facility] [address] [address] 02/22/2025 Manohar Owens Type 2 diabetes mellitus with hyperglycemia, without long-term current use of insulin E11.65 ; Type 2 diabetes mellitus with other specified complication E11.69 ; Mixed hyperlipidemia E78.2 ; Essential hypertension I10 ; Obesity E66.9 and Vitamin D deficiency E55.9 [facility] [address] [address] 05/29/2025 Manohar Owens Type 2 diabetes mellitus with hyperglycemia, without long-term current use of insulin E11.65 ; Diabetes mellitus with peripheral vascular disease E11.51 ; Essential hypertension I10 ; Mixed hyperlipidemia E78.2 ; Colon polyp K63.5 ; Esophageal reflux K21.9 ; Obesity E66.9 and Cervical spondylosis M47.812 [facility] [address] [address] 11/14/2024 Manohar Owens [facility] [address] [address] [facility]14[facility] [address] [address] 09/14/2024 Manohar Owens [facility] [address] [address] 11/14/2024 Manohar Owens [facility] [address] [address] 05/09/2025 Manohar Owens Assessments Encounter Date Diagnosis (ICD Code) Assessment Notes Treatment Notes Treatment Clinical Notes Section Notes 02/22/2025 Type 2 diabetes mellitus with hyperglycemia, without long-term current use of insulin (ICD-10 - E11.65) Type 2 Diabetes: Care Instructions material was printed 11/23/2024 Type 2 diabetes mellitus with hyperglycemia, without long-term current use of insulin (ICD-10 - E11.65) Type 2 Diabetes: Care Instructions material was printed 08/29/2024 Otitis media in diseases classified elsewhere, right ear (ICD-10 - H67.1) Ear Infection (Otitis Media): Care Instructions material was printed 08/29/2024 Impacted cerumen of right ear (ICD-10 - H61.21) 05/29/2025 Type 2 diabetes mellitus with hyperglycemia, without long-term current use of insulin (ICD-10 - E11.65) Type 2 Diabetes: Care Instructions material was printed 08/17/2024 Otitis media in diseases classified elsewhere, right ear (ICD-10 - H67.1) 08/17/2024 Earache on right (ICD-10 - H92.01) Earache: Care Instructions material was printed 08/17/2024 Type 2 diabetes mellitus with hyperglycemia, without long-term current use of insulin (ICD-10 - E11.65) 05/29/2025 Diabetes mellitus with peripheral vascular disease (ICD-10 - E11.51) 08/29/2024 Essential hypertension (ICD-10 - I10) 11/23/2024 Diabetes mellitus with peripheral vascular disease (ICD-10 - E11.51) 02/22/2025 Type 2 diabetes mellitus with other specified complication (ICD-10 - E11.69) 02/22/2025 Mixed hyperlipidemia (ICD-10 - E78.2) 11/23/2024 Generalized osteoarthritis (ICD-10 - M15.9) 08/29/2024 Mixed hyperlipidemia (ICD-10 - E78.2) 05/29/2025 Essential hypertension (ICD-10 - I10) 08/17/2024 Mixed hyperlipidemia (ICD-10 - E78.2) 08/17/2024 Essential hypertension (ICD-10 - I10) 05/29/2025 Mixed hyperlipidemia (ICD-10 - E78.2) 08/29/2024 RLS (restless legs syndrome) (ICD-10 - G25.81) 11/23/2024 Bilateral carotid artery stenosis (ICD-10 - I65.23) 02/22/2025 Essential hypertension (ICD-10 - I10) 11/23/2024 Essential hypertension (ICD-10 - I10) 02/22/2025 Obesity (ICD-10 - E66.9) 05/29/2025 Colon polyp (ICD-10 - K63.5) 08/17/2024 RLS (restless legs syndrome) (ICD-10 - G25.81) 08/17/2024 Peripheral vascular disease, unspecified (ICD-10 - I73.9) 05/29/2025 Esophageal reflux (ICD-10 - K21.9) 11/23/2024 Mixed hyperlipidemia (ICD-10 - E78.2) 02/22/2025 Vitamin D deficiency (ICD-10 - E55.9) 05/29/2025 Obesity (ICD-10 - E66.9) 08/17/2024 Type 2 diabetes mellitus with other specified complication (ICD-10 - E11.69) 08/17/2024 Morbid obesity (ICD-10 - E66.01) 05/29/2025 Cervical spondylosis (ICD-10 - M47.812) Plan Of Treatment Next Appt Details Provider Name:Manohar stoner, 09/06/2025 01:00:00 PM, [address] [facility], [place], [address], Insurance Providers Payer Name Payer Address Payer Phone Subscriber Number Group Number Insured Name Patient Relationship to Insured Coverage Start Date Coverage End Date [employer] [address] [place], [place] [id number] Hu Ballard Self - patient is the insured 2 Medications Administered Medication Instructions Date of Administration Dosage Notes Depo Medro 40mg 12/23/2021 60 mg LEFT SHOU LDER INJECTION 60MG DEPOMEDRO Medical (General) History Medical History History ICD Code Hypertension(benign) Diabetes mellitus GERD(Gastroesophageal reflux disease) Hyperlipidemia Osteoarthritis Surgical History Surgery Date(Month/Year) Colon Resection ; Foot Surgery ; Hospitalization History Reason Date(Month/Year)
--- OUTSIDE RECORDS SUMMARY | 2025-06-23 17:40 | XMS_ITS | Clinical Summary ---
Author Organization [facility] Address [address] [place] [address] Care Team Providers Care Adjustment Clerk Name Role Phone Manohar Owens MD Unavailable [phone] Manohar Owens MD Primary Care Provider [phone] Allergies No known active allergies Medications glipiZIDE (GLUCOTROL) 10 MG tablet Take 1 tablet (10 mg total) by mouth every morning before breakfast. Active losartan (COZAAR) 100 MG tablet Take 1 tablet (100 mg total) by mouth daily. Active amLODIPine (NORVASC) 5 MG tablet Take 1 tablet (5 mg total) by mouth daily. Active ezetimibe (ZETIA) 10 MG tablet Take 1 tablet (10 mg total) by mouth daily. Active Multiple Vitamin (MULTIVITAMIN ADULT OR) Take 1 tablet by mouth daily. Active metFORMIN (GLUCOPHAGE) 500 MG tablet Take 1 tablet (500 mg total) by mouth 2 (two) times daily with meals. Active simvastatin (ZOCOR) 20 MG tablet Take 1 tablet (20 mg total) by mouth nightly at bedtime. Active aspirin 81 MG chewable tablet Chew 1 tablet (81 mg total) by mouth daily. Active traMADol (ULTRAM) 50 MG tabletIndicatio ns:Acute Pain < 7 Day Supply Take 1 tablet (50 mg total) by mouth every 6 (six) hours as needed for Pain. Indications: Acute Pain < 7 Day Supply 25 tablet 11/20/2022 Active Active Problems No known active problems Family History Medical History Relation Comments No Known Problems Father Diabetes Mother Relation Status Comments Father Mother Alive Social History Tobacco Use Types Packs/Day Years Used Date Smoking Tobacco: Never Smokeless Tobacco: Never Tobacco Cessation:Counseling Given: Not Answered Alcohol Use Standard Drinks/Week Comments Yes 0 (1 standard drink = 0.6 oz pur e alcohol) beer- about 7 drinks a day. Sex and Gender Information Value Date Recorded Sex Assigned at Not on file Legal Sex Male 2:08 PM CDT Gender Identity Not on file Sexual Orientation Not on file Last Filed Vital Signs Vital Sign Reading Time Taken Comments Blood Pressure 157/78 12/19/2022 9:00 PM CDT Pulse 116 12/19/2022 9:00 PM CDT Temperature 36.6 C (97.8 F) 12/19/2022 5:51 PM CDT Respiratory Rate 29 12/19/2022 9:00 PM CDT Oxygen Saturation 93% 12/19/2022 9:00 PM CDT Inhaled Oxygen Concentration - - Weight 97.5 kg (215 lb) 12/19/2022 5:51 PM CDT Height 177.8 cm (5' 10) 12/19/2022 5:51 PM CDT Body Mass Index 30.85 12/19/2022 5:51 PM CDT Plan of Treatment Health Maintenance Due Date Last Done Comments Colorectal Cancer Screening Colonoscopy (10 Years) 1952 Hepatitis C 1970 DTaP, Tdap and Td Vaccines ( 1 - Tdap) 1971 Pneumococcal Vaccine: 50+ Ye ars (1 of 1 - PCV) 2002 Zoster Vaccines (1 of 2) 2002 Annual Medicare Wellness Visit 2017 COVID-19 Vaccine ( - 2024-2 6 season) 2025 Influenza Adult (#1) 2025 RSV Immunization or 60+ Years (1 - 1-dose 75+ series) 2027 Hepatitis A Vaccines Aged Out No long er eligible based on patient's age to complete this topic Meningococcal B Vaccine Aged Out No l onger eligible based on patient's age to complete this topic Meningococcal Vaccine Aged Out No jason tati eligible based on patient's age to complete this topic RSV Immunizations Under 20 Months Aged Out No longer eligible based on patient's age to complete this topic Insurance [employer] Care Teams Adjustment Clerk Relationship Specialty Start Date End Date Manohar Owens MD [address] [place] [address] PCP - General INTERNAL MEDICINE 11/20/22 Manohar Owens MD [address] [place] [address] INTERNAL MEDICINE 11/04/22
--- OUTSIDE RECORDS SUMMARY | 2025-06-23 17:41 | XMS_ITS | Clinical Summary ---
Author Organization [facility] Address [address] [place] [address] Care Team Providers Care Philosophy Lecturer Name Role Phone Manohar Owens MD Primary Care Provider Encounters Date Type Department Care Team Description 05/22/2025 12:40 PM CDT Lab [facility] [address] [place] [address] from Last 3 Months Social History Tobacco Use Types Packs/Day Years Used Date Smoking Tobacco: Never Assessed Personal Safety Answer Date Recorded Getting School Help Needed Not on file 07/18 Sex and Gender Information Value Date Recorded Sex Assigned at Not on file Legal Sex 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 Gender Identity Not on file Sexual Orientation Not on file Plan of Treatment Health Maintenance Due Date Last Done Comments Colon Cancer Screening-Colonoscopy 1952 Depression Screening 1952 Fall Risk Assessment 1950 Hepatitis C Screening 1950 DTaP/Tdap/Td Vaccine (1 - Tdap) 1963 Hepatitis B Screening 1970 Pneumococcal vaccine 65+ (1 of 1 - PCV) 2002 Zoster Vaccine (1 of 2) 2002 Well Visit 65+ 2017 Influenza Vaccine (#1) 2025 Prostate Cancer Screening-PSA 05/03/2026, 01/22/2023, 09/10/2021, Additional history exists Abdominal Aortic Aneurysm (A AA) Screen Completed 12/19/2022 Procedures Procedure Name Priority Date/Time Associated Diagnosis Comments EGFR Routine 05/22/2025 12:51 PM CDT DIFFERENTIAL AUTO Routine 05/22/2025 12: 51 PM CDT CBC WITH AUTO DIFFERENTIAL Routine 05/22/2025 12:51 PM CDT HEMOGLOBIN A1C Routine 05/22/2025 12:51 PM CDT LIPID PANEL Routine 05/22/2025 12:51 PM CDT COMPREHENSIVE METABOLIC PANEL Routine 05/22/2025 12:51 PM CDT PSA SCREEN Routine 05/03/2024 1:49 PM CDT from Last 3 Months or Most Recently Relevant to Health Maintenance Results * eGFR (05/22/2025 12:51 PM CDT) eGFR 82 >=60 mL/min/1. 73 m2 Comment: Interpretive Data Reference Interval Normal >/= 90 mL/min/1.73m2 Mildly decreased* 60 - 89 mL/min/1.73m2 Mildly to moderately decreased 45 - 59 mL/min/1.73m2 Moderately to severely decreased 30 - 44 mL/min/1.73m2 Severely decreased 15 - 29 mL/min/1.73m2 Kidney Failure < 15 mL/min/1.73m2 *Relative to young adult level Estimated glomerular filtration rate is determined by the 2020 CKD-EPI equation recommended by the National Kidney Foundation (A Unifying Approach to GFR Estimation: Recommendations of the NKF-ASK Task Force on Reassessing the Inclusion of Race in Diagnosing Kidney Disease, JASN 2020). The CKD-EPI equation should not be used for patients with unstable renal function and has not been validated in children and those over 70. Current interpretive data was last reviewed 2021. Blood 05/22/2025 12:5 1 PM CDT 05/22/2025 1:04 PM CDT Manohar Owens MD LAB BLOOD ORDERABLES Final Result [facility] [address] [facility] [place] [address] * (ABNORMAL) Differential, auto (05/22/2025 12:51 PM CDT) Neutrophil abs 2.69 1.50 - 6.50 K/cumm Imm gran abs 0.01 0.00 - 0.10 K/cumm [facility] Lymphocyte abs 2.63 0.80 - 3.30 K/cumm [facility] Monocyte abs 0.83(H) 0.20 - 0.80 K/cumm [facility] Eosinophil abs 0.17 0.00 - 0.50 K/cumm [facility] Basophil abs 0.04 0.00 - 0.10 K/cumm [facility] Neutrophil pct 42.2 % [facility] Comment: Interpretive Data Percent cell count reference ranges are not reported, since discordance with absolute values may lead to misinterpretation of CBC data. Current Interpretive Data was last revised on 2017. Imm gran pct 0.2 % [facility] Comment: Interpretive Data Percent cell count reference ranges are not reported, since discordance with absolute values may lead to misinterpretation of CBC data. Current Interpretive Data was last revised on 2017. Lymphocyte pct 41.3 % [facility] Comment: Interpretive Data Percent cell count reference ranges are not reported, since discordance with absolute values may lead to misinterpretation of CBC data. Current Interpretive Data was last revised on 2017. Monocyte pct 13.0 % [facility] Comment: Interpretive Data Percent cell count reference ranges are not reported, since discordance with absolute values may lead to misinterpretation of CBC data. Current Interpretive Data was last revised on 2017. Eosinophil pct 2.7 % [facility] Comment: Interpretive Data Percent cell count reference ranges are not reported, since discordance with absolute values may lead to misinterpretation of CBC data. Current Interpretive Data was last revised on 2017. Basophil pct 0.6 % [facility] Comment: Interpretive Data Percent cell count reference ranges are not reported, since discordance with absolute values may lead to misinterpretation of CBC data. Current Interpretive Data was last revised on 2017. Blood 05/22/2025 12:5 1 PM CDT 05/22/2025 1:04 PM CDT Manohar Owens MD LAB BLOOD ORDERABLES Final Result Performing Organization Address [facility] Co de Phone Number NE[facility] [address] [place] [address] * (ABNORMAL) CBC with auto differential (05/22/2025 12:51 PM CDT) WBC 6.37 3.80 - 9.90 K/cumm Hgb 12.4(L) 13.0 - 17.5 g/dL [facility] Hct 37.6(L) 38.9 - 50.3 % [facility] Plt 295 150 - 400 K/cumm [facility] MPV 9.7 9.1 - 12.3 fL [facility] RBC 4.28(L) 4.30 - 5.80 M/cumm [facility] MCV 87.9 81.3 - 96.4 fL [facility] MCH 29.0 27.1 - 33.3 pg [facility] MCHC 33.0 32.3 - 35.7 g/dL [facility] RDW CV 13.2 11.1 - 14.9 % [facility] RDW SD 42.5 35.7 - 48.1 fL [facility] NRBC abs 0.00 0.00 - 0.01 K/cumm [facility] Blood 05/22/2025 12:5 1 PM CDT 05/22/2025 1:04 PM CDT Manohar Owens MD LAB BLOOD ORDERABLES Final Result Performing Organization Address City/[facility]/ZIP Co de Phone Number [facility] [address] [place], [place] [id number] * (ABNORMAL) Hemoglobin A1c (05/22/2025 12:51 PM CDT) Hgb A1C 7.5(H) 4.0 - 5.6 % Estimated Average Glucose 169 mg/dL [facility] Comment: The ADA recommends reporting an estimated Average Glucose (eAG) with all Hemoglobin A1c results using the equation derived from a study of 507 normal and diabetic adults. Minority populations were underrepresented and children were not included. (Diabetes Care 31:9584-3699, 2008). The eAG is not equivalent to a fasting glucose. Blood 05/22/2025 12:5 1 PM CDT 05/22/2025 1:04 PM CDT us Manohar Owens MD LAB BLOOD ORDERABLES Final Result [facility] [address] [facility] [place] [address] * Lipid panel (05/22/2025 12:51 PM CDT) Cholesterol 157 30 - 199 mg/dL Comment: Interpretive Data Ages < or = 19 years Acceptable: <170 mg/dL Borderline high: 170-199 mg/dL High: >or= 200 mg/dL Ages > or = 20 years Desirable: <200 mg/dL Borderline high: 200-239 mg/dL High: >or= 240 mg/dL Literature References: 1. Expert Panel on Integrated Guidelines for Cardiovascular Health and Risk Reduction in Children and Adolescents. Pediatrics 2011;128:S213 2. NCEP Expert Panel. Circulation 2004;110:227 Current Interpretive Data was last revised on 2018. Triglycerides 105 <=149 mg/dL [facility] Comment: Interpretive Data Ages < or = 9 years Acceptable: <75 mg/dL Borderline high: 75-99 mg/dL High: >or= 100 mg/dL Ages 10 to 20 years Acceptable: <90 mg/dL Borderline high: 90-129 mg/dL High: >or= 130 mg/dL Ages > or = 20 years Desirable: <150 mg/dL Borderline high: 150-199 mg/dL High: 200-499 mg/dL Very high: >or= 499 mg/dL Literature References: 1. Expert Panel on Integrated Guidelines for Cardiovascular Health and Risk Reduction in Children and Adolescents. Pediatrics 2011;128:S213 2. NCEP Expert Panel. Circulation 2004;110:227 Current Interpretive Data was last revised on 2018. HDL 51 >=40 mg/dL [facility] Comment: Interpretive Data Ages < or = 19 years Acceptable: >45 mg/dL Borderline low: 40-45 mg/dL Low: <40 mg/dL Ages > or = 20 years Desirable: >or= 60 mg/dL Low: <40 mg/dL Literature References: 1. Expert Panel on Integrated Guidelines for Cardiovascular Health and Risk Reduction in Children and Adolescents. Pediatrics 2011;128:S213 2. NCEP Expert Panel. Circulation 2004;110:227 Current Interpretive Data was last revised on 2018. LDL, calculated 87 <=129 mg/dL [facility] Comment: Interpretive Data Ages < or = 19 years Acceptable: <110 mg/dL Borderline high: 110-129 mg/dL High: >or= 130 mg/dL Ages > or = 20 years Optimal: <100 mg/dL Near optimal: 100-129 mg/dL Borderline high: 130-159 mg/dL High: >160 mg/dL Calculated using the Sancho LDL-C estimating equation. This equation was implemented on 2024. Prior to this date LDL-C was estimated using the Friedewald equation. Literature References: 1. Expert Panel on Integrated Guidelines for Cardiovascular Health and Risk Reduction in Children and Adolescents. Pediatrics 2011;128:S213 2. NCEP Expert Panel. Circulation 2004;110:227 3. Sancho Rosen et al. TITA Cardiol. 2019December 01;5(5):540-548. doi: 10.1001/jamacardio.2020.0013 Current Interpretive Data was last revised on 2024. Non-HDL Cholesterol 106 mg/dL [facility] Comment: Interpretive Data Ages < or = 19 years Acceptable: <120 mg/dL Borderline high: 120-144 mg/dL High: >145 mg/dL Ages > or = 20 years When triglycerides are >200 mg/dL, Non-HDL cholesterol is a secondary target of therapy with treatment goals that are 30 mg/dL greater than the LDL cholesterol target. Literature References: 1. Expert Panel on Integrated Guidelines for Cardiovascular Health and Risk Reduction in Children and Adolescents. Pediatrics 2011;128:S213 2. NCEP Expert Panel. Circulation 2004;110:227 Current Interpretive Data was last revised on 2018. Chol/HDL ratio 3 [facility] Blood 05/22/2025 12:5 1 PM CDT 05/22/2025 1:04 PM CDT Manohar Owens MD LAB BLOOD ORDERABLES Final Result [facility] [address] [facility] [place] [address] * Comprehensive metabolic panel (05/22/2025 12:51 PM CDT) Pathologist [facility] Sodium 137 135 - 145 mmol/L Potassium, pl 3.9 3.3 - 4.9 mmol/L [facility] Chloride 102 97 - 110 mmol/L [facility] CO2 24 22 - 32 mmol/L [facility] Anion gap 11 2 - 15 mmol/L [facility] BUN 14 6 - 25 mg/dL [facility] Creatinine 0.98 0.80 - 1.30 mg/dL [facility] Glucose 156 70 - 199 mg/dL [facility] Comment: Interpretive Data Fasting glucose >/= 126 mg/dl is diagnostic for diabetes. Fasting is defined as no caloric intake for at least 8 hours. Fasting glucose between 100 mg/dl to 125 mg/dl is diagnostic of prediabetes. In a patient with classic symptoms of hyperglycemia or hyperglycemic crisis, a random glucose >/= 200 mg/dl is diagnostic for diabetes. In the absence of unequivocal hyperglycemia, results should be confirmed by repeat testing. The classification and Diagnosis of Diabetes Diabetes Care 2021; 46: S19-S40. Current interpretive data was last revised 2022. Calcium 9.5 8.5 - 10.3 mg/dL [facility] Bilirubin, total 0.6 0.1 - 1.2 mg/dL [facility] Protein, pl 7.5 6.5 - 8.5 g/dL [facility] Albumin 4.1 3.5 - 5.0 g/dL [facility] Alk phos 42 40 - 130 Units/L [facility] ALT 23 7 - 55 Units/L [facility] AST 22 10 - 50 Units/L [facility] Blood 05/22/2025 12:5 1 PM CDT 05/22/2025 1:04 PM CDT Manohar Owens MD LAB BLOOD ORDERABLES Final Result Performing Organization Address [facility] de Phone Number [facility] [address] [facility] [place] [address] * PSA screen (05/03/2024 1:49 PM CDT) PSA-Total 1.00 <=6.20 ng/mL Comment: Interpretive Data AGE SEX REFERENCE INTERVAL 0 minutes-150 years Female None 0 minutes-49 years Male None 50-59 years Male 0-3.90 60-69 years Male 0-5.40 70-79 years Male 0-6.20 80-150 years Male 0-6.20 The Latrell PSA Total assay procedure was used. Results from different manufacturers or methods may not be comparable. Serial testing should be performed using the same method. Current interpretive data last revised 21. Blood 05/03/2024 1:49 PM CDT 05/03/2024 1:50 PM CDT Manohar Owens MD LAB BLOOD ORDERABLES Final Result Performing Organization Address [facility] de Phone Number [facility] [place] [address] from Last 3 Months or Most Recently Relevant to Health Maintenance Insurance [facility] [employer]ET[employer] MEDICARE Care Teams Philosophy Lecturer Relationship Specialty Start Date End Date Manohar Owens MD PCP - General 10/07/18
--- NOTE | 2025-06-23 17:58 | ECG_ITS ---
Test Date: 2025-06-23 17:00:09 Measurements Intervals [place] Rate: 106 P: 62 ID: [id number] QRS: -7 QRSD: 89 T: 80 QT: 328 QTc: 437 Interpretive Statements SINUS TACHYCARDIA WITH OCCASIONAL SUPRAVENTRICULAR PREMATURE COMPLEXES INDETERMINATE AXIS ABNORMAL RHYTHM ECG No previous ECG available for comparison Electronically Signed On 06-24-2025 06:42:12 ENTRY CLERK by Tyson Mas M.D.
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
[2025-06-23 18:44] LABS: Hematocrit 40.8 % (42.0-52.0); Hemoglobin 13.2 g/dL (14.0-18.0); Immature Granulocyte Percent A 0.2 % (0-0.5); Lymphocytes Absolute Auto 2.21 K/mm3 (0.9-3.2); Mean Corpuscular HGB Conc 32.4 g/dl (32-36); Mean Corpuscular Hemoglobin 28.4 pg (26-34); Mean Corpuscular Volume 87.9 fl (80-100); Nucleated Red Blood Cells Absolute Auto 0.000 K/mm3 (0.0-0.012); Nucleated Red Blood Cells Perc 0.0 % (0.0-0.2); Platelet Count Result 314 k/mm3 (150-375); Red Blood Count 4.64 M/mm3 (4.6-6.20); White Blood Count 6.2 K/mm3 (4.5-10.0)
[2025-06-23 18:52] LABS: Add Urine Microscopic? YES; Appearance Urine Cloudy (Clear); Glucose Urine UA Trace mg/dL (Negative); Leukocyte Esterase Ur Negative LEU/UL (Negative); Nitrate Urine Negative (Negative); Specific Grav Ur 1.024 (1.001-1.035)
[2025-06-23 18:53] LABS: INR 1.0; Prothrombin Time 13.5 Seconds (11.1-14.7)
[2025-06-23 18:54] LABS: Alanine Aminotransferase 47 U/L (6-50); Albumin Level 4.4 g/dL (3.5-5.1); Alkaline Phosphatase 54 U/L (38-126); Anion Gap 10 mmol/L (4-12); Aspartate Amino Transferase 39 U/L (17-59); Bilirubin,Total 0.4 mg/dL (0.2-1.3); Blood Urea Nitrogen 11 mg/dL (9-20); Calcium 9.5 mg/dL (8.4-10.2); Carbon Dioxide 24 mmol/L (22-30); Chloride 106 mmol/L (98-107); Estimated CRCL calculation 57 ml/min; Estimated Glomerular Filt Rate > 60; Glucose 142 mg/dL (65-110); Partial Thromboplastin Time 23.3 Seconds (22.3-36.8); Potassium 4.1 mmol/L (3.4-5.0); Sodium 140 mmol/L (137-145); Total Protein 8.1 g/dL (6.3-8.2)
[2025-06-23] MEDS: SODIUM CHLORIDE 0.9% IV 1,000 ML 999 ML IV CONT (20:25)
[2025-06-23 20:58] VITALS: PULSE 94; RESP 25; O2SAT 97
[2025-06-23 21:00] VITALS: PULSE 103; RESP 19; O2SAT 97
[2025-06-23 21:15] VITALS: PULSE 103; RESP 23; O2SAT 96
[2025-06-23 21:19] VITALS: BP 157/81; PULSE 104; RESP 24
== END 2025-06-23 21:25 | disposition home or self-care (01) ==
PROVIDERS: PCP Internal Medicine
DX: R42 Dizziness and giddiness (principal)
CPT/HCPCS: 36415; 70450; 80053; 81001; 85025; 85610; 85730; 93005; 96360; 99284; J7030